=== PATIENT | female | born 1955 | race African-American/Black ===

== ENCOUNTER 2020-04-23 21:18 | Inpatient (IN) ==
[2020-04-23] MEDS ORDERED: METOPROLOL TARTRATE 5 MG/5 ML VIAL IV ONE ×2 (22:57)
[2020-04-23] MEDS ORDERED: GLUCAGON 1 MG VIAL IM PRN (22:59)
[2020-04-23] MEDS ORDERED: ONDANSETRON 4 MG/2 ML VIAL IV PRN (22:59)
[2020-04-23] MEDS ORDERED: ALBUTEROL 2.5 MG/3 ML NEB RESP TX PRN (22:59)
[2020-04-23] MEDS ORDERED: ZALEPLON 5 MG CAPSULE PO PRN (22:59)
[2020-04-23] MEDS ORDERED: DEXTROSE 50% 25 GM/50 ML VIAL IV PRN (22:59)
[2020-04-23] MEDS ORDERED: CYCLOBENZAPRINE 10 MG TABLET PO PRN (23:08)
[2020-04-23] MEDS ORDERED: ENOXAPARIN 120 MG/0.8 ML SYRINGE SUBCUT ONE (23:29)
[2020-04-24] MEDS: methylPREDNISolone SOD SUC 125 MG/2 ML VIAL IV SCH ×2 (00:06→08:42)
[2020-04-24 00:08] LABS: ABG Base Excess 7.8 MMOL/L (-2.5-2.5); ABG HCO3 31.6 MMOL/L (20-26); ABG PCO2 52.1 MM HG (35-48); ABG PH 7.421 (7.35-7.45); ABG TCO2 29.9 MMOL/L (23-27)
[2020-04-24] MEDS: busPIRone 15 MG TABLET PO SCH ×3 (00:09→21:04)
[2020-04-24] MEDS: LEVOFLOXACIN INJ 500 MG in PREMIX 1 EACH IV SCH ×2 (00:11→23:33)
[2020-04-24 00:57] LABS: Bilirubin,Urine Negative (Negative); Blood, Urine Negative (Negative); Glucose,Urine (UA) Negative (Negative); Hyaline Casts,Urine 14 /LPF (0-3); Ketones,Urine Negative (Negative); Mucus,Urine Occasional /LPF (Occasional); Nitrite,Urine Negative (Negative); Protein,Urine Negative; Squamous Epithelial Cell,Urine Occasional /HPF (0-10); Urine Appearance CLEAR (Clear); Urine Color Yellow (Yellow); Urine Specific Gravity 1.009 (1.001-1.035); Urine Urobilinogen < 2.0 EU/DL (0.2-1.0); WBC,Urine 1 /HPF (0-6)
[2020-04-24] MEDS: ALBUTEROL/IPRATROPIUM 3 ML NEB RESP TX SCH ×4 (01:08→19:37)
[2020-04-24] MEDS: INSULIN REGULAR 100 UNIT/ML SUBCUT SCH ×5 (01:09→20:21)
[2020-04-24 02:23] LABS: Basophils % 0.1 % (0.0-0.8); Hematocrit 35.1 VOL% (35.7-47.0); Hemoglobin 11.8 GM/DL (12.0-16.0); Immature Granulocytes % 0.4 %; Immature Granulocytes Absolute 0.04 #; Lymphocytes # 0.4 10*3/uL (1.4-4.0); Mean Corpuscular HGB Conc 33.6 GM/DL (32-36); Mean Corpuscular Volume 78.7 FL (87-102); Mean Platelet Volume 10.3 FL (9.6-12.0); Monocytes % 0.5 % (1.7-12.7); Platelet Count 268 T/CUMM (130-400); Red Blood Count 4.46 MC/CUMM (3.8-5.5); Red Cell Distribution Width 14.5 % (9.3-17.3)
[2020-04-24 02:42] LABS: Calcium 9.5 MG/DL (8.5-10.1); Osmolality,Calculated 284.4 MOS/KG (273-304)
[2020-04-24 02:48] LABS: Lymphocytes 1 % (20-55); Platelet Estimate Normal; Segmented Neutrophils 99 % (50-85); Total Cells Counted 100
[2020-04-24 02:49] LABS: Hypochromasia Slight
[2020-04-24 02:50] LABS: Stomatocytes Few
[2020-04-24 02:52] LABS: Anisocytosis Slight; Microcytosis 2+
[2020-04-24] MEDS: MAGNESIUM OXIDE 400 MG TABLET PO SCH ×2 (08:38→21:05)
[2020-04-24] MEDS: OLMESARTAN 20 MG TABLET PO SCH (08:38)
[2020-04-24] MEDS: metFORMIN 850 MG TABLET PO SCH ×2 (08:38→17:13)
[2020-04-24] MEDS: ASPIRIN EC 81 MG TABLET PO SCH (08:38)
[2020-04-24] MEDS: DOCUSATE SODIUM 100 MG CAPSULE PO SCH ×2 (08:39→21:05)
[2020-04-24] MEDS: POTASSIUM CHLORIDE 20 MEQ TABLET PO SCH ×3 (08:39→21:10)
[2020-04-24] MEDS: amLODIPine 10 MG TABLET PO SCH (08:40)
[2020-04-24] MEDS: SPIRONOLACTONE 25 MG TABLET PO SCH (08:40)
[2020-04-24] MEDS: FUROSEMIDE 40 MG/4 ML VIAL IV SCH ×2 (08:40→16:12)
[2020-04-24] MEDS: PANTOPRAZOLE 40 MG TABLET PO SCH (08:40)
[2020-04-24] MEDS: methylPREDNISolone SOD SUC 40 MG/1 ML VIAL IV SCH ×2 (15:04→21:06)
[2020-04-24] MEDS: ALUMINUM/MAGNES/SIMETH MAX STR 30 ML UDCUP PO PRN (16:12)
[2020-04-24] MEDS: SIMVASTATIN 20 MG TABLET PO SCH (17:13)
[2020-04-24] MEDS: ACETAMINOPHEN 325 MG TABLET PO PRN (19:03)
[2020-04-24] MEDS: MONTELUKAST 10 MG TABLET PO SCH (21:05)
[2020-04-25] MEDS: ALBUTEROL/IPRATROPIUM 3 ML NEB RESP TX SCH ×4 (00:09→19:34)
[2020-04-25] MEDS: methylPREDNISolone SOD SUC 40 MG/1 ML VIAL IV SCH ×4 (02:45→17:56)
[2020-04-25 05:49] LABS: Basophils % 0.1 % (0.0-0.8); Hematocrit 34.1 VOL% (35.7-47.0); Hemoglobin 10.9 GM/DL (12.0-16.0); Immature Granulocytes % 1.3 %; Immature Granulocytes Absolute 0.14 #; Lymphocytes # 0.9 10*3/uL (1.4-4.0); Lymphocytes % 8.8 % (21.3-54.2); Mean Corpuscular Volume 80.4 FL (87-102); Mean Platelet Volume 10.9 FL (9.6-12.0); Monocytes % 3.9 % (1.7-12.7); Neutrophils % 85.9 % (38.7-73.9); Platelet Count 261 T/CUMM (130-400); Red Blood Count 4.24 MC/CUMM (3.8-5.5); Red Cell Distribution Width 14.6 % (9.3-17.3); White Blood Count 10.7 T/CUMM (4-12)
[2020-04-25 06:09] LABS: Calcium 9.6 MG/DL (8.5-10.1); Osmolality,Calculated 284.4 MOS/KG (273-304)
[2020-04-25] MEDS: MAGNESIUM OXIDE 400 MG TABLET PO SCH ×2 (09:13→21:27)
[2020-04-25] MEDS: PANTOPRAZOLE 40 MG TABLET PO SCH (09:13)
[2020-04-25] MEDS: amLODIPine 10 MG TABLET PO SCH (09:13)
[2020-04-25] MEDS: metFORMIN 850 MG TABLET PO SCH ×2 (09:13→16:16)
[2020-04-25] MEDS: ASPIRIN EC 81 MG TABLET PO SCH (09:13)
[2020-04-25] MEDS: INSULIN REGULAR 100 UNIT/ML SUBCUT SCH ×4 (09:14→21:26)
[2020-04-25] MEDS: POTASSIUM CHLORIDE 20 MEQ TABLET PO SCH ×3 (09:14→21:28)
[2020-04-25] MEDS: SPIRONOLACTONE 25 MG TABLET PO SCH (09:14)
[2020-04-25] MEDS: OLMESARTAN 20 MG TABLET PO SCH (09:14)
[2020-04-25] MEDS: DOCUSATE SODIUM 100 MG CAPSULE PO SCH ×2 (09:14→21:27)
[2020-04-25] MEDS: busPIRone 15 MG TABLET PO SCH ×2 (09:14→21:27)
[2020-04-25] MEDS: FUROSEMIDE 40 MG/4 ML VIAL IV SCH (09:15)
[2020-04-25] MEDS: LEVOFLOXACIN INJ 250 MG in PREMIX 1 EACH IV SCH (09:57)
[2020-04-25] MEDS: SIMVASTATIN 20 MG TABLET PO SCH (16:16)
[2020-04-25] MEDS: ACETAMINOPHEN 325 MG TABLET PO PRN (17:55)
[2020-04-25] MEDS ORDERED: BENZONATATE 100 MG CAPSULE PO PRN (21:18)
[2020-04-25] MEDS: MONTELUKAST 10 MG TABLET PO SCH (21:27)
[2020-04-26] MEDS: ALBUTEROL/IPRATROPIUM 3 ML NEB RESP TX SCH ×4 (00:52→20:50)
[2020-04-26] MEDS: methylPREDNISolone SOD SUC 40 MG/1 ML VIAL IV SCH ×3 (01:30→14:40)
[2020-04-26 06:15] LABS: Basophils % 0.1 % (0.0-0.8); Hematocrit 33.1 VOL% (35.7-47.0); Hemoglobin 10.6 GM/DL (12.0-16.0); Immature Granulocytes Absolute 0.11 #; Lymphocytes # 0.9 10*3/uL (1.4-4.0); Lymphocytes % 7.6 % (21.3-54.2); Mean Corpuscular Volume 81.5 FL (87-102); Mean Platelet Volume 11.4 FL (9.6-12.0); Monocytes % 3.1 % (1.7-12.7); Neutrophils % 88.2 % (38.7-73.9); Platelet Count 283 T/CUMM (130-400); Red Blood Count 4.06 MC/CUMM (3.8-5.5); Red Cell Distribution Width 14.6 % (9.3-17.3); White Blood Count 11.2 T/CUMM (4-12)
[2020-04-26 06:42] LABS: Calcium 9.2 MG/DL (8.5-10.1); Osmolality,Calculated 290.4 MOS/KG (273-304)
[2020-04-26 06:45] LABS: Alanine Aminotransferase 12 U/L (13-56); Albumin 2.9 G/DL (3.4-5.0); Alkaline Phosphatase 68 U/L (45-117); Aspartate Amino Transferase 8 U/L (0-37); Bilirubin,Direct < 0.100 MG/DL (0.0-0.20); Bilirubin,Indirect 0.5 MG/DL (0.0-1.0); Blood Urea Nitrogen 41 MG/DL (7-18); Calcium 9.3 MG/DL (8.5-10.1); Estimated Glom Filtration Rate 33 ML/MIN; Glucose 160 MG/DL (74-106); Osmolality,Calculated 293.3 MOS/KG (273-304); Total Protein 6.6 G/DL (6.4-8.3)
[2020-04-26] MEDS ORDERED: LACTATED RINGERS 1,000 ML IV SCH (08:00)
[2020-04-26] MEDS: PANTOPRAZOLE 40 MG TABLET PO SCH (08:53)
[2020-04-26] MEDS: MAGNESIUM OXIDE 400 MG TABLET PO SCH ×2 (08:53→21:24)
[2020-04-26] MEDS: ASPIRIN EC 81 MG TABLET PO SCH (08:53)
[2020-04-26] MEDS: DOCUSATE SODIUM 100 MG CAPSULE PO SCH ×2 (08:53→21:24)
[2020-04-26] MEDS: amLODIPine 10 MG TABLET PO SCH (08:53)
[2020-04-26] MEDS: POTASSIUM CHLORIDE 20 MEQ TABLET PO SCH ×3 (08:53→21:24)
[2020-04-26] MEDS: busPIRone 15 MG TABLET PO SCH ×2 (08:54→21:24)
[2020-04-26] MEDS: INSULIN REGULAR 100 UNIT/ML SUBCUT SCH ×4 (08:54→21:24)
[2020-04-26] MEDS ORDERED: FUROSEMIDE 20 MG/2 ML VIAL IV SCH (09:00)
[2020-04-26] MEDS: LEVOFLOXACIN INJ 250 MG in PREMIX 1 EACH IV SCH (09:01)
[2020-04-26] MEDS: ENOXAPARIN 30 MG/0.3 ML SYRINGE SUBCUT SCH (17:54)
[2020-04-26] MEDS: SIMVASTATIN 20 MG TABLET PO SCH (17:55)
[2020-04-26] MEDS: MONTELUKAST 10 MG TABLET PO SCH (21:24)
[2020-04-26] MEDS: ALUMINUM/MAGNES/SIMETH MAX STR 30 ML UDCUP PO PRN (21:24)
[2020-04-27] MEDS: methylPREDNISolone SOD SUC 40 MG/1 ML VIAL IV SCH ×3 (00:03→17:14)
[2020-04-27] MEDS: ALBUTEROL/IPRATROPIUM 3 ML NEB RESP TX SCH ×3 (01:02→12:58)
[2020-04-27 06:45] LABS: Calcium 10.2 MG/DL (8.5-10.1); Osmolality,Calculated 288.5 MOS/KG (273-304)
[2020-04-27] MEDS: INSULIN REGULAR 100 UNIT/ML SUBCUT SCH ×3 (09:59→17:42)
[2020-04-27] MEDS: DOCUSATE SODIUM 100 MG CAPSULE PO SCH (10:00)
[2020-04-27] MEDS: ASPIRIN EC 81 MG TABLET PO SCH (10:00)
[2020-04-27] MEDS: amLODIPine 10 MG TABLET PO SCH (10:00)
[2020-04-27] MEDS: MAGNESIUM OXIDE 400 MG TABLET PO SCH (10:00)
[2020-04-27] MEDS: busPIRone 15 MG TABLET PO SCH (10:00)
[2020-04-27] MEDS: POTASSIUM CHLORIDE 20 MEQ TABLET PO SCH ×2 (10:00→17:13)
[2020-04-27] MEDS: LEVOFLOXACIN INJ 250 MG in PREMIX 1 EACH IV SCH (10:01)
[2020-04-27 11:54] VITALS: BP 166/58
[2020-04-27] MEDS: ENOXAPARIN 30 MG/0.3 ML SYRINGE SUBCUT SCH (17:13)
[2020-04-27] MEDS: SIMVASTATIN 20 MG TABLET PO SCH (17:13)
== END 2020-04-27 17:54 | disposition home health service (06) | DRG 140 ==
LOC: N.ICU 22:48 → SUATTDRO 22:48 → N.TELEN 04-24 11:08
PROVIDERS: ADMIT Internal Medicine; ATTEND Internal Medicine